=== PATIENT | male | born 1985 | race Caucasian/White ===

== ENCOUNTER 2020-10-08 12:21 | Emergency (ER) | payer BC ==
[~2020-10-08] VITALS: Ht 172.7 cm; Wt 63.5 kg
--- NOTE | 2020-10-08 12:31 | NUR ---
at [facility] for assessment
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
[2020-10-08] MEDS ORDERED: HYDROCODONE/APAP 10-325 MG TABLET PO ONE (12:45)
[2020-10-08] MEDS ORDERED: KETOROLAC TROMETHAMINE 30 MG INJ IM ONE (12:45)
[2020-10-08] MEDS ORDERED: HYDROCODONE/APAP 10-325 MG TABLET ONE (12:50)
[2020-10-08] MEDS ORDERED: KETOROLAC TROMETHAMINE 30 MG INJ ONE (12:50)
[2020-10-08] MEDS ORDERED: MORPHINE SULFATE 4 MG/1 ML DISP.SYRIN IV ONE (13:15)
[2020-10-08] MEDS ORDERED: MORPHINE SULFATE 2 MG/1 ML DISP.SYRIN ONE (13:29)
[2020-10-08] MEDS ORDERED: MORPHINE SULFATE 4 MG/1 ML DISP.SYRIN ONE (13:29)
[2020-10-08 13:56] LABS: HEMATOCRIT 42.4 % (36.7-47.1); MEAN CORPUSCULAR HEMOGLOBIN 29.9 uug (23.8-33.4); MEAN CORPUSCULAR VOLUME 89.2 fL (73.0-96.2); PLATELET COUNT (AUTO) 302 K/uL (152-348)
[2020-10-08 14:00] LABS: CREATININE 1.2 mg/dL (0.6-1.3)
--- NOTE | 2020-10-08 14:00 | NUR ---
Sherine from [facility] given report by MD Melton and myself, accepting MD Lopes Addendum: 10/08/20 at 1503 by VIVEK [phone]
[2020-10-08 14:06] LABS: BILIRUBIN,TOTAL 0.3 mg/dL (0.2-1.0); TOTAL PROTEIN, SERUM 7.1 g/dL (6.4-8.2)
[2020-10-08] MEDS ORDERED: IV NORMAL SALINE 250 ML IV ONE (14:10)
[2020-10-08] MEDS ORDERED: IOHEXOL 300MG/ML 100 ML INFUS..BTL ONE (14:10)
--- NOTE | 2020-10-08 14:46 | NUR ---
Patient noted being picked up by [facility] for a higher level of care transfer
== END 2020-10-08 14:36 | disposition short-term general hospital (02) ==
LOC: ER 12:21
DX: S27.1XXA Traumatic hemothorax, initial encounter (principal); S22.32XA Fracture of one rib, left side, initial encounter for closed fracture; S42.112A Displaced fracture of body of scapula, left shoulder, initial encounter for closed fracture; V86.56XA Driver of dirt bike or motor/cross bike injured in nontraffic accident, initial encounter; Y93.89 Activity, other specified; Y92.89 Other specified places as the place of occurrence of the external cause; S36.039A Unspecified laceration of spleen, initial encounter; S27.0XXA Traumatic pneumothorax, initial encounter; D72.829 Elevated white blood cell count, unspecified; Z88.0 Allergy status to penicillin; Z87.81 Personal history of (healed) traumatic fracture
CPT/HCPCS: 36415; 71101; 71260; 73030; 74177; 76604; 76705; 80053; 85025; 93308; 96372; 96374; 99291; J1885; J2270 ×2; Q9967; A4663; J7030; J7050